=== PATIENT | male | born 1960 | race Caucasian/White ===

== ENCOUNTER 2017-07-17 16:02 | Emergency (ER) | payer BC ==
[~2017-07-17] VITALS: Ht 172.7 cm; Wt 95.3 kg
[2017-07-17] MEDS ORDERED: PREDNISONE 20 M20 MG PO (17:32)
[2017-07-17] MEDS ORDERED: CLARITIN10 MG PO (17:32)
== END 2017-07-17 18:02 | disposition home or self-care (01) ==
LOC: ER 16:02
DX: T78.40XA Allergy, unspecified, initial encounter (principal); X58.XXXA Exposure to other specified factors, initial encounter